=== PATIENT | female | born 1945 | race Caucasian/White ===

== ENCOUNTER 2019-07-02 13:13 | Outpatient (CLI) | payer OTHER | END 2019-07-02 13:55 | disposition home or self-care (01) | LOC: WOUND MED 13:13 | DX: L98.492 Non-pressure chronic ulcer of skin of other sites with fat layer exposed (principal); R60.0 Localized edema | CPT/HCPCS: G0463; A4554; A4930; A6216; A6266 ==

== ENCOUNTER 2019-07-09 10:36 | Outpatient (CLI) | payer OTHER | END 2019-07-09 11:18 | disposition home or self-care (01) | LOC: WOUND MED 10:36 | DX: L98.492 Non-pressure chronic ulcer of skin of other sites with fat layer exposed (principal); L89.010 Pressure ulcer of right elbow, unstageable; R60.0 Localized edema | CPT/HCPCS: 11042; A4554; A4930; A6216; A6219 ==

== ENCOUNTER 2019-07-16 11:11 | Outpatient (CLI) | payer OTHER | END 2019-07-16 11:51 | disposition home or self-care (01) | LOC: WOUND MED 11:11 | DX: L98.492 Non-pressure chronic ulcer of skin of other sites with fat layer exposed (principal); L89.010 Pressure ulcer of right elbow, unstageable; R60.0 Localized edema | CPT/HCPCS: G0463; A4554; A4930; A6216 ==